=== PATIENT | female | born 1960 | race Two or more races ===

== ENCOUNTER 2020-08-06 11:00 | Inpatient (IN) | payer OTHER ==
[~2020-08-06] VITALS: Ht 160 cm; Wt 136.1 kg
[2020-09-02] MEDS ORDERED: URSO250 MG PO (12:39)
[2020-09-02] MEDS ORDERED: IMURAN50 MG PO (12:39)
[2020-09-02] MEDS ORDERED: CLONAZEPAM1 MG PO (12:40)
[2020-09-02] MEDS ORDERED: RESTORIL15 M1 PO (12:40)
[2020-09-02] MEDS ORDERED: PROTONIX20 MG PO (12:40)
[2020-09-02] MEDS ORDERED: SYNTHROID88 MCG PO (12:44)
[2020-09-08] MEDS ORDERED: RESTORIL30 M1 PO (08:10)
[2020-09-08] MEDS ORDERED: COLACE100 MG PO (08:10)
[2020-09-08] MEDS ORDERED: PERCOCET 5-3251 EACH PO (08:10)
== END 2020-09-09 14:13 | DRG 473 ==
LOC: EDUNIT# 11:00 → EDBD 11:00 → O/R 09-08 05:00 → SURG 09-08 05:00 → SURH 09-08 07:00 → SURG 09-08 11:46
PROVIDERS: ADMIT Orthopaedic Surgery Orthopaedic Surgery of the Spine; ATTEND Orthopaedic Surgery Orthopaedic Surgery of the Spine
PROC: 0RT30ZZ Resection of Cervical Vertebral Disc, Open Approach (ICD-10-PCS; 2020-09-08)
PROC: 07DS3ZZ Extraction of Vertebral Bone Marrow, Percutaneous Approach (ICD-10-PCS; 2020-09-08)
PROC: 0RG20A0 Fusion of 2 or more Cervical Vertebral Joints with Interbody Fusion Device, Anterior Approach, Anterior Column, Open Approach (ICD-10-PCS; principal; 2020-09-08 07:00)
DX: M50.021 Cervical disc disorder at C4-C5 level with myelopathy (principal); M50.01 Cervical disc disorder with myelopathy, high cervical region; Z20.828 Contact with and (suspected) exposure to other viral communicable diseases; M50.022 Cervical disc disorder at C5-C6 level with myelopathy; S14.12 Central cord syndrome of cervical spinal cord

== ENCOUNTER → 2020-08-29 07:00 | Outpatient (CLI) | payer OTHER ==
[~2020-08-29 07:00] MED LIST: CLONAZEPAM1 MG PO; COLACE100 MG PO; IMURAN50 MG PO; PERCOCET 5-3251 EACH PO; PROTONIX20 MG PO; RESTORIL15 M1 PO; RESTORIL30 M1 PO; SYNTHROID88 MCG PO; URSO250 MG PO
== END | disposition home or self-care (01) ==
LOC: LAB 07:00
PROVIDERS: ATTEND Orthopaedic Surgery Orthopaedic Surgery of the Spine
DX: D68.8 Other specified coagulation defects (principal); D64.89 Other specified anemias; E03.8 Other specified hypothyroidism; E04.2 Nontoxic multinodular goiter; I10 Essential (primary) hypertension